=== PATIENT | female | born 1960 | race Caucasian/White ===

== ENCOUNTER → 2016-09-23 | Outpatient (CLI) | payer OTHER ==
[~2016-09-23] MED LIST: ACCUPRIL40 MG PO; AMBIEN CR 6.26.25 MG; AMITRIPTYLINE H25 M4; ATIVAN1 MG PO; CALCIUM 500 +1 EAC5 PO; FISHOIL; FLOMAX PO; IRON325; NORCO 5-325 TA1 EACH PO; PREDNISONE 10 M10 MG; SYNTHROID25 MCG PO; TOPROL XL25 MG PO; ZOCOR 20 MG TAB20 M1
== END ==
LOC: RAD 01:41
DX: Z12.31 Encounter for screening mammogram for malignant neoplasm of breast (principal)

== ENCOUNTER → 2018-07-16 | Outpatient (CLI) | payer OTHER | LOC: RAD 07-03 14:51 | DX: Z12.31 Encounter for screening mammogram for malignant neoplasm of breast (principal) ==

== ENCOUNTER → 2020-12-11 | Outpatient (CLI) | payer OTHER | LOC: BC 14:34 | PROVIDERS: ATTEND Obstetrics & Gynecology | DX: Z12.31 Encounter for screening mammogram for malignant neoplasm of breast (principal); N64.89 Other specified disorders of breast ==

== ENCOUNTER → 2020-12-15 | Outpatient (CLI) | payer OTHER | LOC: BC 10:01 | PROVIDERS: ATTEND Obstetrics & Gynecology | DX: N63.20 Unspecified lump in the left breast, unspecified quadrant (principal); R92.2 Inconclusive mammogram ==